=== PATIENT | male | born 1975 | race Two or more races ===

== ENCOUNTER 2020-08-26 17:34 | Emergency (ER) | payer SELFPAY ==
[~2020-08-26] VITALS: Ht 177.8 cm; Wt 89.6 kg
--- NOTE | 2020-08-26 17:57 | NUR ---
PT HAS BEEN HAVING THROAT PAIN SINCE LAST FRIDAY. PAIN HAS BEEN GETTING WORSE OVER LAST COUPLE DAYS. PT CANNOT SPEAK DUE TO THE SWELLING. MUFFLED SPEECH. IS SPEAKING FOR PT. SENT FROM WHERE THEY GAVE PENICILLIN.
--- NOTE | 2020-08-26 18:01 | NUR ---
MD AT BEDSIDE. PT ATTACHED TO MONITORS. PT IN NAD.
--- NOTE | 2020-08-26 18:02 | NUR ---
PENICILLIN WAS NOT GIVEN AT .
--- NOTE | 2020-08-26 18:13 | NUR ---
BREAK NURSE: NO BC BEFORE UNAYSN PER MD.
[2020-08-26 18:25] LABS: MEAN CORPUSCULAR HEMOGLOBIN 29.1 pg (27.5-34.5); MEAN CORPUSCULAR HGB CONC 33.5 g/dL (33.2-36.2); MEAN PLATELET VOLUME 7.2 fL (7.4-10.4); PLATELET COUNT 310 x10^3/uL (130-400); RED BLOOD COUNT 5.48 x10^6/uL (4.38-5.82); RED CELL DISTRIBUTION WIDTH 12.8 % (9.4-14.8)
[2020-08-26] MEDS ORDERED: SODIUM CHLORIDE FLUSH 10ML SYR IVF ONE (18:30)
[2020-08-26] MEDS ORDERED: AMPICILLIN/SULBACTAM 3 GM in SODIUM CHLORIDE 0.9% 100 ML IV ONE (18:30)
[2020-08-26 18:36] LABS: ALBUMIN 3.8 g/dL (3.4-5.0); ANION GAP 8 mmol/L (5-15); CALCIUM 8.6 mg/dL (8.5-10.1); CHLORIDE 105 mmol/L (98-107)
[2020-08-26 18:49] LABS: MD YES
[2020-08-26 18:51] LABS: BAND#(MANUAL) 0.16 x10^3/uL; BANDS%(MANUAL) 1 % (0-7); BASOS#(MANUAL) 0.16 x10^3/uL (0-0.1); BASOS% (MANUAL) 1 % (0-1); EOS#(MANUAL) 0.16 x10^3/uL (0.0-0.4); EOS% (MANUAL) 1 % (1-7); LYMPH#(MANUAL) 1.77 x10^3/uL (1-3.4); LYMPHS% (MANUAL) 11 % (22-44); MONOS#(MANUAL) 0.64 x10^3/uL (0.3-2.7); MONOS% (MANUAL) 4 % (2-9); SEGS% (MANUAL) 82 % (42-75)
[2020-08-26 18:52] LABS: <PLATELET ESTIMATE> ADEQUATE; <PLT MORPHOLOGY> NORMAL PLT MORPH
[2020-08-26 18:53] LABS: <RBC MORPHOLOGY> NORMAL
[2020-08-26] MEDS ORDERED: MORPHINE SULFATE 4 MG/ML, 1ML ONE (18:53)
[2020-08-26] MEDS ORDERED: DEXAMETHASONE 4 MG/ML, 1ML ONE (18:53)
[2020-08-26] MEDS ORDERED: ONDANSETRON 2MG/ML, 2ML ONE (18:53)
--- NOTE | 2020-08-26 18:59 | NUR ---
PT OFF UNIT IN IMAGING.
[2020-08-26] MEDS ORDERED: MORPHINE SULFATE 4 MG/ML, 1ML IVPush PRN (19:00)
[2020-08-26] MEDS ORDERED: ONDANSETRON 2MG/ML, 2ML IVPush ONE (19:00)
[2020-08-26] MEDS ORDERED: DEXAMETHASONE 4 MG/ML, 1ML IVPush ONE (19:00)
[2020-08-26] MEDS ORDERED: OMNIPAQUE 350 MG/ML, 100ML BOTTLE ONE (19:04)
--- NOTE | 2020-08-26 19:12 | NUR ---
pt and asked if PT RECEIVED ANY MEDICATIONS FROM [facility] AND THEY STATED THAT THEY HAVE NOT GOTTEN ANY MEDICATIONS
--- NOTE | 2020-08-26 19:21 | NUR ---
PT TOLERATED MEDICATION WELL. CURRENTLY RESTING IN BED, VSS.
[2020-08-26] MEDS ORDERED: LIDOCAINE-MPF 1%, 5ML ONE (19:41)
--- NOTE | 2020-08-26 20:12 | NUR ---
PT IN ROOM AFTER INCISION. USING SUCTION NEEDED FOR BLOOD AND SECRETIONS. TOLERATING WELL. PT IN NAD. BREATHING EVEN AND UNLABORED. CALL LIGHT WITHIN REACH. AT BEDSIDE. MONITORS ATTACHED. VSS
[2020-08-26 21:02] VITALS: BP 121/64
== END 2020-08-26 21:05 | disposition home or self-care (01) ==
LOC: ED 18:27
DX: J36 Peritonsillar abscess (principal)
CPT/HCPCS: 36415; 42700; 70491; 80048; 82040; 85025; 96365; 96375; 99285; J0295; J1100; J2270; J2405; Q9967